=== PATIENT | male | born 1950 | race Caucasian/White ===

== ENCOUNTER 2020-05-31 16:06 | Emergency (ER) | payer MEDICARE, BC, SELFPAY ==
--- NOTE | 2020-05-31 16:08 | ED.GENADULT ---
HPI - General Adult General Chief complaint: Wound/Laceration Stated complaint: L KNEE LACERATION Time Seen by Provider: 05/31/20 16:08 Source: patient Mode of arrival: ambulatory Limitations: no limitations History of Present Illness HPI narrative: 69-year-old male patient presents to the [facility] with complaints of a laceration to the left knee. Patient states he lacerated about 1 hour ago with a chainsaw. Patient unknown of when his last tetanus shot was. Patient states he did clean it with soap and water prior to arrival and put some Neosporin on it prior to arrival. Patient denies any issues with walking or bending the knee. Related Data Home Medications Medication Instructions Recorded Confirmed atorvastatin 10 mg PO HS 05/28/19 05/28/19 Allergies Allergy/AdvReac Type Severity Reaction Status Date / Time No Known Allergies Allergy Verified 05/31/20 16:11 Review of Systems Review of Systems: Narrative: CONSTITUTIONAL: Denies fever, chills, or sweats. EYES: Denies visual changes, redness, or discharge. ENT: Denies rhinorrhea, congestion, sore throat, or otalgia. CARDIOVASCULAR: Denies chest pain, palpitations, or edema. RESPIRATORY: Denies cough or dyspnea. GASTROINTESTINAL: Denies abdominal pain, nausea, vomiting, or diarrhea. GENITOURINARY: Denies dysuria or hematuria. SKIN: Denies rash or itching. Positive laceration to left knee with chainsaw MUSCULOSKELETAL: Denies back pain, joint pain, or myalgia. NEUROLOGIC: Denies headache, numbness, or weakness. PSYCHIATRIC: Denies anxiety or depression. PMFSH Past Medical History Medical History (Updated 05/31/20 @ 16:26 by BREANNE Noyola) Coronary artery disease History of rectal polyps Hyperlipidemia Psoriasis Family History Family History (Updated 05/31/20 @ 16:10 by BREANNE Noyola) Other FH: kidney cancer Liver cancer Social History Social History Smoking status: Never smoker Gender identity (if verbalized by the patient): Male Comments At the time of my signature I agree with nursing past medical history, surgical, social, and family history. There is no relevant family history pertinent to the presenting complaint. Exam Narrative: Exam Narrative: GENERAL: Well-appearing, well-nourished, and in no acute distress. HEAD: Normocephalic, atraumatic. EYES: PERRLA and EOMI. ENT: Nares clear, no rhinorrhea or epistaxis. Mucous membranes moist. NECK: Supple. No lymphadenopathy CHEST: Clear to auscultation. No respiratory distress. HEART: Regular rate and rhythm. No murmur heard. Normal peripheral pulses. ABDOMEN: Soft, nontender, nondistended, normal active bowel sounds. EXTREMITIES: Normal range of motion. No edema. SKIN: Warm, dry, no rash. Patient has very superficial laceration noted over the left patella. Patient has 3 separate abrasions first 1 approximately 1/2 cm a second 1 approximately 1 cm and the third 1 about 0.5 cm. There is no gaping wounds. There is no active bleeding noted. Patient has excellent range of motion to the knee. NEURO: No focal deficits. Alert and oriented x3. Course Vital Signs Vital signs: Vital Signs Temperature 36.3 C L 05/31/20 16:10 Pulse Rate 66 05/31/20 16:10 Respiratory Rate 16 05/31/20 16:10 Blood Pressure 151/83 H 05/31/20 16:10 Pulse Oximetry 99 05/31/20 16:10 Temperature 36.3 C L 05/31/20 16:10 Pulse Rate 66 05/31/20 16:10 Respiratory Rate 16 05/31/20 16:10 Blood Pressure 151/83 H 05/31/20 16:10 Pulse Oximetry 99 05/31/20 16:10 Vital signs reviewed The patient has been informed that they may have pre-hypertension or Hypertension based on a BP reading in the department. I recommend that the patient call the primary care provider listed on their discharge instructions or a physician of their choice this week to arrange follow up for further evaluation of possible pre-hypertension or Hypertens
[2020-05-31 16:10] VITALS: BP 151/83; PULSE 66; RESP 16; TEMP 36.3; O2SAT 99
[2020-05-31] MEDS: TETANUS,DIPHTHERIA,AC PERTUSSIS ADULT (0.5 ML) BOOSTRIX IM (16:25)
--- NOTE | 2020-05-31 16:47 | PC.NURSE ---
1620: patient given information regarding tdap prior to injection.
== END 2020-05-31 16:40 | disposition home or self-care (01) ==
PROVIDERS: Emergency Provider Nurse Practitioner Family; PCP Family Medicine Adolescent Medicine
DX: S80.212A Abrasion, left knee, initial encounter (principal); W29.3XXA Contact with powered garden and outdoor hand tools and machinery, initial encounter; Z23 Encounter for immunization; I25.10 Atherosclerotic heart disease of native coronary artery without angina pectoris; E78.5 Hyperlipidemia, unspecified
CPT/HCPCS: 90471; 90715; 99212; G0463

== ENCOUNTER → 2022-09-20 08:42 | Outpatient (CLI) | payer MEDICARE, BC, SELFPAY ==
--- NOTE | ~2022-09-20 | XR_ITS ---
XR cervical spine 4-5V DATE: 09/20/2022 09:03 INDICATION: Posterior neck pain. No injury. TECHNIQUE: AP, open-mouth, lateral, swimmer views COMPARISON: None FINDINGS: C1 and C2 are normally aligned and the odontoid process is intact. There is minimal retrolisthesis at C2-3. There is minimal loss of disc space height at and C4-5 and C5-6. There is minimal anterolisthesis at C5-6, C6-7 and C7-T1. No fracture or dislocation or locked facet or prevertebral soft tissue swelling. IMPRESSION: Minimal retrolisthesis at C2-3 Minimal anterolisthesis at C5-6, C6-7 and C7-T1 Reviewed, dictated and finalized at location B.
== END ==
PROVIDERS: PCP Physician Assistant; Visit Provider Physician Assistant
DX: M54.2 Cervicalgia (principal)
CPT/HCPCS: 72050

== ENCOUNTER 2023-07-06 06:14 | Emergency (ER) | payer MEDICARE, BC, SELFPAY ==
--- NOTE | ~2023-07-06 | XR_ITS ---
Left Hand Technique: PA, oblique, and lateral views were obtained. Clinical History: Injury Findings: No acute fracture or dislocation is seen. Osseous alignment is anatomic. Joint spaces are p reserved. Soft tissues are unremarkable. Impression: Unremarkable left hand. Reviewed, dictated and finalized at location M. SELLING PSYCHOLOGIST Impression: Unremarkable left hand.
[2023-07-06 06:18] VITALS: BP 165/84; PULSE 68; RESP 18; TEMP 36.7; O2SAT 98
--- NOTE | 2023-07-06 07:59 | ED.WOUNDLAC ---
HPI - Wound/Laceration General Chief Complaint: Wound/Laceration Stated Complaint: laceration Time Seen by Provider: 07/06/23 07:14 Source: patient Mode of arrival: ambulatory Limitations: no limitations History of Present Illness HPI narrative: 72-year-old here with complaints of laceration to his left hand sustained few hours ago at home, he states that he accidentally cut himself with a gill box operator while cutting a box . Onset (ago): hour(s) Extremity Location: Left: hand Place: home Context: accidental Associated symptoms: none Related Data Home Medications Medication Instructions Recorded Confirmed rosuvastatin 10 mg tablet 10 mg PO DAILY 07/06/23 07/06/23 Allergies Allergy/AdvReac Type Severity Reaction Status Date / Time No Known Allergies Allergy Verified 07/06/23 06:23 Review of Systems Review of Systems: All systems reviewed & are unremarkable except as noted in HPI and below Constitutional: Constitutional: Reports as per HPI Eyes: Eyes: Reports no additional eye complaints ENT: Reports system reviewed and no additional complaints, except as documented Cardiovascular: Cardiovascular: Reports no additional cardiovascular complaints Respiratory: Respiratory: Reports no additional respiratory complaints Gastrointestinal: Gastrointestinal: Reports no additional gastrointestinal complaints Musculoskeletal: Musculoskeletal: Reports as per HPI Integumentary/Breasts: Skin/Breast: Reports as per HPI Neurologic: Reports system reviewed and no additional complaints, except as documented Psychiatric: Psychiatric: Reports no additional psychiatric complaints PMFSH Past Medical History Medical History Coronary artery disease History of rectal polyps Hyperlipidemia Psoriasis Family History Family History Other FH: kidney cancer Liver cancer Social History Social History Smoking status: Never smoker Gender identity (if verbalized by the patient): Male Exam Narrative: GENERAL: Well-appearing, well-nourished, and in no acute distress. HEAD: Normocephalic, atraumatic. EYES: PERRLA and EOMI. ENT: Nares clear, no rhinorrhea . NECK: Supple. CHEST: Clear to auscultation. No respiratory distress. HEART: Regular rate and rhythm. No murmur heard. Normal peripheral pulses. EXTREMITIES: Normal range of motion. No edema. has a 4 cms on the left Thenar eminence SKIN: Warm, dry, no rash. NEURO: No focal deficits. Alert and oriented x3. PSYCH: Normal mood and affect. Course Vital Signs Vital signs: Vital Signs Temperature 36.7 C 07/06/23 06:18 Pulse Rate 68 07/06/23 06:18 Respiratory Rate 18 07/06/23 06:18 Blood Pressure 165/84 H 07/06/23 06:18 Pulse Oximetry 98 07/06/23 06:18 Oxygen Delivery Room Air 07/06/23 06:18 Temperature 36.7 C 07/06/23 06:18 Pulse Rate 68 07/06/23 06:18 Respiratory Rate 18 07/06/23 06:18 Blood Pressure 165/84 H 07/06/23 06:18 Pulse Oximetry 98 07/06/23 06:18 Oxygen Delivery Room Air 07/06/23 06:18 Procedures Laceration Laceration 1: Date: 07/06/23 Site: hand (left hand) Side (If applicable): left Size (cm): 4 Description: linear Depth: simple, single layer Local Anesthetic: lidocaine 2% Amount of anesthesia used (mL): 10 ====== Skin Level ====== Skin layer closed with: nylon Size (cm): 4-0 Number of sutures: 8 ====== Subcutaneous Layer ====== ====== Muscle Layer ====== ====== Tendon Layer ====== Discharge Plan Discharge Clinical Impression: Laceration Patient Disposition: Home, Self-Care Condition: Stable Instructions: Laceration (ED) Additional Instructions: Keep the wound clean , take antibiotic as prescribed , sutures off 7 to 10 d
[2023-07-06] MEDS: LIDOCAINE HCL 2% LOCAL INJ 20 ML VIAL (08:07)
== END 2023-07-06 08:41 | disposition home or self-care (01) ==
PROVIDERS: Emergency Provider Family Medicine; PCP Physician Assistant
DX: S61.412A Laceration without foreign body of left hand, initial encounter (principal); W26.8XXA Contact with other sharp object(s), not elsewhere classified, initial encounter; I25.10 Atherosclerotic heart disease of native coronary artery without angina pectoris; E78.5 Hyperlipidemia, unspecified
CPT/HCPCS: 12002; 73130; 99283

== ENCOUNTER 2023-12-20 00:27 | Day surgery (SDC) | payer MEDICARE, BC, SELFPAY ==
[2023-12-01 13:55] VITALS: BMI 25.9
[2023-12-20 08:53] VITALS: BP 129/83; PULSE 61; RESP 20; TEMP 36.2; O2SAT 99
[2023-12-20] MEDS: LACTATED RINGERS 1,000 ML 150 ML IV CONT (09:08)
--- NOTE | 2023-12-20 09:44 | WPDANESEPPF ---
Anes - Initial Pre Proc Eval Procedure: Operation Date: 12/20/23 10:00 Proposed Procedures p Colonoscopy - Yon Guzmán MD Date/Time: 12/20/23 09:44 Surgeon: Yon Guzmán MD Pre Op Diagnosis: Pers. hx. colon polyps Patient Data Age: 73 Gender: M Height: 1.73 m Weight: 76.8 kg Last Vital Signs Temp 36.2 C L 12/20/23 08:53 Pulse 61 12/20/23 08:53 Resp 20 12/20/23 08:53 BP 129/83 12/20/23 08:53 Pulse Ox 99 12/20/23 08:53 O2 Del Method Room Air 12/20/23 08:53 Allergies Allergy/AdvReac Type Severity Reaction Status Date / Time No Known Allergies Allergy Verified 12/20/23 08:52 Home Medications Medication Instructions Recorded Confirmed Type rosuvastatin 10 mg tablet 10 mg PO DAILY 07/06/23 12/01/23 History ketoconazole 2 % topical cream 1 applic topical BID 12/01/23 12/01/23 History sildenafil 50 mg tablet 50 mg PO DIRECTED PRN Sexual 12/01/23 12/01/23 History Activity Patient hx anesthesia problems: none Family hx anesthesia problems: none Results Review: All pre-operative results and documents have been reviewed as part of the pre-operative evaluation. [facility] Past Medical History Medical History Coronary artery disease History of rectal polyps Hyperlipidemia Psoriasis Surgical History Surgical History (Updated 12/20/23 @ 09:44 by Woody Rai MD) H/O colonoscopy Family History Family History Other FH: kidney cancer Liver cancer Social History Social History Smoking status: Never smoker Alcohol intake: current Drinks per week: 3 Substance use: never Substance use type: does not use Living arrangements: with family Gender identity (if verbalized by the patient): Male Spiritual care concerns: No Anes - Eval Final PreProcedure Day of Procedure 12/20/23 09:44 Patient weight: normal Heart: regular rate and rhythm Lungs: clear to auscultation Airway: Mallampati scale class II Neurological: alert and oriented Last oral intake: >/= 8 hours ASA classification: II Emergent: no Anesthetic plan: proceed Anesthesia type and monitoring: general GIVS and standard monitoring Results Review: All pre-operative results and documents have been reviewed as part of the pre-operative evaluation. Informed Consent: The patient's anesthetic plan and its attendant risks and benefits were discussed with the patient/family/POA. Questions were solicited and answers provided to the satisfaction of the patient/family/POA.
--- NOTE | 2023-12-20 09:59 | PM.HPGS ---
History of Present Illness History of Present Illness Consent: Risks, benefits, and alternatives have been discussed and questions answered. Patient agrees to proceed with procedure. Chief complaint: Pers. hx. colon polyps Narrative: Woody Holm is a 73 year old male with colon polyp in 2019 Review of Systems Review of Systems: All systems reviewed & are unremarkable except as noted in HPI and below PMFSH Past Medical History Medical History (Updated 12/20/23 @ 10:00 by Yon Guzmán MD) Colon polyp Coronary artery disease History of rectal polyps Hyperlipidemia Psoriasis Surgical History Surgical History (Updated 12/20/23 @ 09:44 by Woody Rai MD) H/O colonoscopy Family History Family History Other FH: kidney cancer Liver cancer Social History Social History Smoking status: Never smoker Alcohol intake: current Drinks per week: 3 Substance use: never Substance use type: does not use Living arrangements: with family Gender identity (if verbalized by the patient): Male Spiritual care concerns: No Meds Home Medications and Allergies Home Medications Medication Instructions Recorded Confirmed Type rosuvastatin 10 mg tablet 10 mg PO DAILY 07/06/23 12/01/23 History ketoconazole 2 % topical cream 1 applic topical BID 12/01/23 12/01/23 History sildenafil 50 mg tablet 50 mg PO DIRECTED PRN Sexual 12/01/23 12/01/23 History Activity Allergies Allergy/AdvReac Type Severity Reaction Status Date / Time No Known Allergies Allergy Verified 12/20/23 08:52 Vital Signs Vital Signs - 24 hr 12/20/23 08:53 Temperature 97.1 F L Pulse Rate 61 Respiratory Rate 20 Blood Pressure 129/83 Pulse Oximetry 99 Oxygen Delivery Room Air Exam Const: General: comfortable and no acute distress HENMT: Face/Nose/Sinus: Normal nares present Eyes: General: appearance normal, both eyes and all related structures Neck: Neck: no JVD Resp: Auscultation: clear to auscultation bilaterally Cardio: Rate: regular rate Rhythm: regular rhythm GI: Inspection: non-distended GI Palp: Yes Soft to palpation Skin: General skin exam: normal color Neuro: General: gait normal Speech: normal speech Extrem: General: normal to inspection Psych: Mental Status: mental status grossly normal Assessment and Plan Assessment and plan (1) Colon polyp: Code(s): K63.5 - Polyp of colon Status: Acute Assessment and Plan: colonoscopy
[2023-12-20 10:24] VITALS: BP 130/74; PULSE 56; RESP 12; O2SAT 100
[2023-12-20 10:34] VITALS: BP 131/74; PULSE 59; RESP 20; O2SAT 100
[2023-12-20 10:44] VITALS: BP 153/83; PULSE 55; RESP 20; O2SAT 100
== END 2023-12-20 10:53 | disposition home or self-care (01) ==
PROVIDERS: PCP Physician Assistant; Visit Provider Internal Medicine Gastroenterology
PROC: 0DJD8ZZ Inspection of Lower Intestinal Tract, Via Natural or Artificial Opening Endoscopic (ICD-10-PCS; CPT 45378; principal; 2023-12-20 10:00)
DX: Z12.11 Encounter for screening for malignant neoplasm of colon (principal); D12.0 Benign neoplasm of cecum; D12.2 Benign neoplasm of ascending colon; K64.8 Other hemorrhoids; I25.10 Atherosclerotic heart disease of native coronary artery without angina pectoris; E78.5 Hyperlipidemia, unspecified
CPT/HCPCS: 45385; 88305; J2001; J2704; J7120